=== PATIENT | female | born 1960 | race Two or more races ===

== ENCOUNTER 2017-01-30 14:25 | Emergency (ER) | payer MEDICAID ==
[~2017-01-30] VITALS: Ht 170.2 cm; Wt 81.6 kg
--- NOTE | 2017-01-30 14:42 | NUR ---
pt ambulatory to er bed 12. c/o dizziness after inhaling fumes from cleaning agent. hx of hypertension. unable to recall ehat she takes. placed on monitor. denies chest pain. awaiting md villafana.
--- NOTE | 2017-01-30 14:44 | NUR ---
dr ross at bedside for eval.
--- NOTE | 2017-01-30 14:55 | NUR ---
pt to radiology for head ct scan via wheelchair.
[2017-01-30] MEDS ORDERED: ACETAMINOPHEN 325 MG TABLET ONE (14:58)
[2017-01-30] MEDS ORDERED: ACETAMINOPHEN 325 MG TABLET PO ONE (15:00)
--- NOTE | 2017-01-30 15:58 | NUR ---
collaborating supervising physician at bedside for blood draw.
[2017-01-30 16:05] LABS: BASOPHILS # (AUTO) 0.1 /CMM (0.0-0.2); BASOPHILS % (AUTO) 0.7 % (0.0-2.0); EOSINOPHILS # (AUTO) 0.2 /CMM (0.0-0.7); EOSINOPHILS % (AUTO) 2.4 % (0.0-6.0); HEMATOCRIT 45 % (33-45); HEMOGLOBIN 15.3 g/dL (11.5-14.8); LYMPHOCYTES # (AUTO) 1.9 /CMM (0.8-4.8); LYMPHOCYTES % (AUTO) 25.2 % (20.0-44.0); MEAN CORPUSCULAR HEMOGLOBIN 29 PG (26.0-33.0); MEAN CORPUSCULAR HGB CONC 34 g/dl (31.0-36.0); MEAN CORPUSCULAR VOLUME 85 fL (82-100); MONOCYTES # (AUTO) 0.4 /CMM (0.1-1.30); MONOCYTES % (AUTO) 5.3 % (2.0-12.0); NEUTROPHILS # (AUTO) 4.8 /CMM (1.8-8.9); NEUTROPHILS % (AUTO) 66.4 % (43.0-81.0); PLATELET COUNT (AUTO) 286 /CMM (150-450); RDW COEFFICIENT OF VARIATION 12.4 (11.5-15.0); RED BLOOD CELL COUNT(AUTO) 5.28 MIL/uL (4.0-5.2); WHITE BLOOD COUNT (AUTO) 7.4 K/uL (4.3-11.0)
[2017-01-30 16:15] LABS: CALCIUM, SERUM 9.6 mg/dL (8.5-10.1); CARBON DIOXIDE 33 mmol/L (21-32); CHLORIDE 107 mmol/L (98-107); CREATININE 0.7 mg/dL (0.6-1.3); GLUCOSE 109 mg/dL (74-106); SODIUM SERUM 143 mmol/L (136-145); UREA NITROGEN, BLOOD 11 mg/dL (7-18)
[2017-01-30] MEDS ORDERED: AMLO10TA2 PO (16:15)
[2017-01-30] MEDS ORDERED: LISI-658 PO (16:15)
[2017-01-30 16:25] LABS: TROPONIN I < 0.017 ng/mL (0.00-0.056)
[2017-01-30 16:34] VITALS: BP 145/76
== END 2017-01-30 16:35 | disposition home or self-care (01) ==
LOC: ER 14:31
DX: I10 Essential (primary) hypertension (principal); F43.9 Reaction to severe stress, unspecified; R51 Headache; Z90.49 Acquired absence of other specified parts of digestive tract
CPT/HCPCS: 36415; 70450; 80048; 84484; 85025; 93005; 99285; A4606; Z7610

== ENCOUNTER 2017-06-05 07:16 | Emergency (ER) | payer MEDICAID ==
[~2017-06-05] VITALS: Ht 157.5 cm; Wt 86.2 kg
[~2017-06-05 07:16] MED LIST: AMLO10TA2 PO; LISI-658 PO
[2017-06-05] MEDS ORDERED: IV NS 0.9% 1,000 ML BAG IV ONE (08:00)
[2017-06-05] MEDS ORDERED: ONDANSETRON HCL/PF 4 MG/2 ML VIAL IVP ONE (08:00)
[2017-06-05] MEDS ORDERED: ASPIRIN 81 MG TAB.CHEW PO ONE (08:00)
--- NOTE | 2017-06-05 08:00 | NUR ---
PT CAME IN WITH C/O MIDSTERNAL CHEST PAIN X 1 WEEK WORSENING YESTERDAY. VSS. SEEN BY MD FOR EVAL. IV ACCESS STARTED. BLOOD DRAWN FOR LABS. MEDICATED ORDERED. SAFETY AND COMFORT MEASURES PROVIDED. WILL MONITOR.
[2017-06-05] MEDS ORDERED: ASPIRIN 81 MG TAB.CHEW ONE (08:03)
[2017-06-05] MEDS ORDERED: ONDANSETRON HCL/PF 4 MG/2 ML VIAL ONE (08:03)
[2017-06-05 08:04] LABS: BASOPHILS % (AUTO) 0.5 % (0.0-2.0); EOSINOPHILS # (AUTO) 0.2 /CMM (0.0-0.7); EOSINOPHILS % (AUTO) 2.5 % (0.0-6.0); HEMATOCRIT 42 % (33-45); HEMOGLOBIN 14.4 g/dL (11.5-14.8); LYMPHOCYTES % (AUTO) 35.8 % (20.0-44.0); MEAN CORPUSCULAR HEMOGLOBIN 30 PG (26.0-33.0); MEAN CORPUSCULAR HGB CONC 34 g/dl (31.0-36.0); MEAN CORPUSCULAR VOLUME 87 fL (82-100); MONOCYTES # (AUTO) 0.7 /CMM (0.1-1.30); MONOCYTES % (AUTO) 8.3 % (2.0-12.0); NEUTROPHILS # (AUTO) 4.4 /CMM (1.8-8.9); NEUTROPHILS % (AUTO) 52.9 % (43.0-81.0); PLATELET COUNT (AUTO) 307 /CMM (150-450); RED BLOOD CELL COUNT(AUTO) 4.87 MIL/uL (4.0-5.2); WHITE BLOOD COUNT (AUTO) 8.3 K/uL (4.3-11.0)
[2017-06-05 08:20] LABS: ALANINE AMINOTRANSFERASE 28 U/L (12-78); ALBUMIN 3.8 g/dL (3.4-5.0); ALKALINE PHOSPHATASE 114 U/L (46-116); ASPARTATE AMINOTRANSFERASE 18 U/L (15-37); BILIRUBIN,DIRECT 0.1 mg/dL (0.0-0.2); BILIRUBIN,TOTAL 0.3 mg/dL (0.2-1.0); CALCIUM, SERUM 9.3 mg/dL (8.5-10.1); CARBON DIOXIDE 28 mmol/L (21-32); CHLORIDE 110 mmol/L (98-107); CREATININE 0.6 mg/dL (0.6-1.3); GLUCOSE 128 mg/dL (74-106); POTASSIUM 3.9 mmol/L (3.5-5.1); SODIUM SERUM 141 mmol/L (136-145); TOTAL PROTEIN, SERUM 8.1 g/dL (6.4-8.2); UREA NITROGEN, BLOOD 10 mg/dL (7-18)
[2017-06-05 08:22] LABS: TROPONIN I < 0.017 ng/mL (0.00-0.056)
[2017-06-05 08:31] LABS: INR 0.9 (0.87-1.13); PROTHROMBIN TIME 9.4 SECS (9.5-12.7)
--- NOTE | 2017-06-05 11:00 | NUR ---
dIV removed. Catheter intact and site benign. Pressure and 4x4 applied to site. No bleeding noted.
--- NOTE | 2017-06-05 11:12 | NUR ---
Patient discharged to home in stable condition. Written and verbal after care instructions given. Patient verbalizes understanding of instruction.
[2017-06-05 11:14] VITALS: BP 181/85
== END 2017-06-05 11:14 | disposition home or self-care (01) ==
LOC: ER 07:23
DX: R07.2 Precordial pain (principal); I10 Essential (primary) hypertension; R79.1 Abnormal coagulation profile; Z90.49 Acquired absence of other specified parts of digestive tract
CPT/HCPCS: 36415; 71010; 80048; 80076; 84484; 85025; 85730; 93005; 96360; 99285; A4606; J2405; Z7610

== ENCOUNTER 2017-10-08 13:01 | Emergency (ER) | payer MEDICAID ==
[~2017-10-08] VITALS: Ht 160 cm; Wt 88.5 kg
--- NOTE | 2017-10-08 13:15 | NUR ---
PRESENTS TO ER C/O HIGH BLOOD PRESURE. TAKES LOSARTAN 25MG PO BID. PATIENT ALSO SEEMS VERY ANXIOUS. A/OX 4. BREATHING EVEN AND UNLABORED. NO SOB, NO CHEST PAIN, NAD. SAFETY AND COMFORT MEASURES NI PLACE. AWAITING MD ORDERS.
[2017-10-08] MEDS ORDERED: LORAZEPAM 1 MG TABLET ONE (13:17)
[2017-10-08] MEDS ORDERED: LORAZEPAM 1 MG TABLET PO ONE (13:30)
[2017-10-08 13:51] VITALS: BP 155/102
== END 2017-10-08 13:51 | disposition home or self-care (01) ==
LOC: ER 13:02
DX: F41.9 Anxiety disorder, unspecified (principal); I10 Essential (primary) hypertension; Z90.49 Acquired absence of other specified parts of digestive tract
CPT/HCPCS: 99284; A4606; Z7610

== ENCOUNTER 2018-05-11 09:32 | Emergency (ER) | payer SELFPAY ==
[~2018-05-11] VITALS: Ht 157.5 cm; Wt 85.7 kg
[~2018-05-11 09:32] MED LIST changes: -AMLO10TA2 PO; +AMLO10TA6 PO
--- NOTE | 2018-05-11 09:45 | NUR ---
PATIENT TO ED DT DIZZINESS. PATIENT RECEIVED AWAKE AND ALERT. NOT IN DISTRESS. SKIN IS WARM TO TOUCH AND NON DIAPHORETIC. PATIENT IS AFEBRILE. VSS
[2018-05-11] MEDS ORDERED: IV NS 0.9% 1,000 ML BAG IV ONE (10:00)
[2018-05-11 10:05] LABS: BASOPHILS % (AUTO) 0.7 % (0.0-2.0); HEMATOCRIT 42 % (33-45); HEMOGLOBIN 14.2 g/dL (11.5-14.8); LYMPHOCYTES # (AUTO) 2.6 /CMM (0.8-4.8); LYMPHOCYTES % (AUTO) 36.9 % (20.0-44.0); MEAN CORPUSCULAR HEMOGLOBIN 29 PG (26.0-33.0); MEAN CORPUSCULAR HGB CONC 34 g/dl (31.0-36.0); MEAN CORPUSCULAR VOLUME 87 fL (82-100); MONOCYTES # (AUTO) 0.5 /CMM (0.1-1.30); MONOCYTES % (AUTO) 7.9 % (2.0-12.0); NEUTROPHILS # (AUTO) 3.7 /CMM (1.8-8.9); NEUTROPHILS % (AUTO) 52.5 % (43.0-81.0); RDW COEFFICIENT OF VARIATION 12.2 (11.5-15.0); RED BLOOD CELL COUNT(AUTO) 4.89 MIL/uL (4.0-5.2); WHITE BLOOD COUNT (AUTO) 6.9 K/uL (4.3-11.0)
[2018-05-11 10:09] LABS: PLATELET COUNT (AUTO) 265 /CMM (150-450)
[2018-05-11 10:13] LABS: CALCIUM, SERUM 8.9 mg/dL (8.5-10.1); CREATININE 0.7 mg/dL (0.6-1.3); POTASSIUM 3.9 mmol/L (3.5-5.1)
--- NOTE | 2018-05-11 11:05 | NUR ---
Patient discharged to home in stable condition. Written and verbal after care instructions given. Patient verbalizes understanding of instruction.IV removed. Catheter intact and site benign. Pressure and 4x4 applied to site. No bleeding noted.
[2018-05-11 11:06] VITALS: BP 140/92
== END 2018-05-11 11:07 | disposition home or self-care (01) ==
LOC: ER 09:34
DX: R42 Dizziness and giddiness (principal); I10 Essential (primary) hypertension; Z90.49 Acquired absence of other specified parts of digestive tract; Z60.2 Problems related to living alone; Z79.899 Other long term (current) drug therapy
CPT/HCPCS: 36415; 80048; 85025; 93005; 96360; 99285; A4606; J7030; Z7610